=== PATIENT | female | born 1995 | race Caucasian/White ===

== ENCOUNTER 2019-05-23 09:45 | Outpatient (CLI) | payer BC, SELFPAY ==
[2019-05-23 11:00] LABS: Hemoglobin 12.2 g/dL (12.0-15.0)
[2019-05-23 11:57] LABS: HIV 1 P24 AG Negative (Negative); HIV 1/2 AB Negative (Negative)
[2019-05-23 12:05] LABS: Glucose 1 Hour PP 50gm Dose 121 mg/dL (70-130)
[2019-05-25 19:08] LABS: RPR Screen Non-Reactive (Non-Reactive)
== END 2019-05-23 09:46 | disposition home or self-care (01) ==
PROVIDERS: PCP Family Medicine
DX: Z34.02 Encounter for supervision of normal first pregnancy, second trimester (principal)
CPT/HCPCS: 36415; 82947; 85014; 85018; 86592; 86703; 86850; 86900; 86901

== ENCOUNTER 2023-01-16 03:24 | Day surgery (SDC) | payer OTHER, SELFPAY ==
[2023-01-13 11:23] VITALS: BMI 28.3
--- NOTE | 2023-01-13 11:26 | PM.IMHP ---
H&P: HPI History of Present Illness Date/Time: 01/13/23 11:26 Chief Complaint: 1st trimester missed Narrative: This is a 27-year-old 2 para 1 with a 1st trimester missed by serial ultrasound. She opts for suction dilatation curettage. Risks and benefits reviewed including but not exclusive of , aspiration burning of a bleeding, transfusion, perforation injury to bowel, bladder, ureters, or other internal organs with need for open laparotomy. She had all questions answered and asked to proceed Meds Home Medications and Allergies Home Medications Medication Instructions Recorded Confirmed Type vits no.126-ferrous fum 1 tablet PO DAILY 01/13/23 01/13/23 History 28 mg iron-folic acid 800 mcg tablet (Classic ) Allergies Allergy/AdvReac Type Severity Reaction Status Date / Time shellfish derived Allergy Nausea and Verified 01/13/23 11:22 Vomiting Exam Const: General: cooperative, healthy appearing and comfortable Nutritional Appearance: average body habitus Orientation/consciousness: oriented to person, oriented to place and oriented to time HENMT: Head: normal to inspection Resp: Effort & Inspection: normal respiratory effort Cardio: Rate: regular rate Rhythm: regular rhythm Heart sounds: S1 normal heart sound present and S2 normal heart sound present GI: Inspection: normal to inspection : Speculum Exam - Vagina: normal appearance of the vagina Speculum Exam - Cervix: normal appearance of the cervix Bimanual exam- vagina & uterus: enlarged Bimanual Exam- Adnexa, other: normal adnexae Assessment and Plan Assessment and plan (1) Missed : Code(s): O02.1 - Missed Status: Acute Plan Suction dilatation and curettage
--- NOTE | 2023-01-13 11:27 | PC.NURSE ---
Report to the Outpatient Waiting Room, entrance under the green pavilion located off [facility], at time 1145 on date 01/16/23. Planned Procedure Time: 1345. Time changes happen often and if your time is changed the preop area will call you the afternoon before. - You and your visitor will be asked to self-screen and do not enter if you have any COVID symptoms. - A mask is optional within the hospital at this time. Patients may have clear liquids (water, carbonated beverages, clear teas, apple juice) until 3 hours prior to surgery with a maximum of 20 ounces. - No food from midnight until time of surgery Take the following medications with a SIP of water the morning of surgery: NONE DO NOT STOP ANY OF YOUR OTHER PRESCRIPTION MEDICATIONS PRIOR TO SURGERY ?EXCEPT THE FOLLOWING Medications to discontinue per physician: VITAMINS Date to take last dose: NO MORE UNTIL AFTER SURGERY Please no make-up, nail bermudian, hairspray, perfume, deodorant, or body powder the day of surgery. No jewelry (including any body piercings) or valuables the day of surgery, leave them at home. Please take a shower or bath the night before, or the morning of, surgery with an antibacterial soap. Wear comfortable, loose fitting clothing. - Jewelry must be removed prior to entering the operating room. Rings and piercings that are not removed may be cut off. - The hospital will not accept responsibility for valuables. - Please leave all valuables, including medications, at home the day of surgery. If you are going home after surgery, a licensed dump truck driver off highway must drive you home. - NO public transportation without another adult if you receive anesthesia. - We recommend that an adult stay with you for 24 hours following discharge. - We also recommend that you do not drive, make important decision, drink alcoholic beverages, or take any drugs that were not prescribed by your health care provider for at least 24 hours after your discharge time. Follow any additional instructions given to you from your surgeon. If you or anyone in your household have experienced Covid symptoms in the past week, please notify your surgeon or the nurse liaison at the phone number below for possible testing. Telephone instructions given to PT Oriana KERR and asked if any additional questions and then verbalized understanding. Patient advised to call surgeon office or pre surgery nurse liaison [phone] if any additional questions.
--- NOTE | 2023-01-15 14:22 | WPDANESEPPF ---
Anes - Initial Pre Proc Eval Procedure: Operation Date: 01/16/23 13:45 Proposed Procedures p Suction Dilatation and Curettage - Grabiel Jo MD Date/Time: 01/15/23 14:22 Surgeon: Grabiel Jo MD Pre Op Diagnosis: missed AB Patient Data Age: 27 Gender: F Height: 1.6 m Weight: 72.6 kg Allergies Allergy/AdvReac Type Severity Reaction Status Date / Time shellfish derived Allergy Nausea and Verified 01/16/23 09:56 Vomiting Home Medications Medication Instructions Recorded Confirmed Type vits no.126-ferrous fum 1 tablet PO DAILY 01/13/23 01/13/23 History 28 mg iron-folic acid 800 mcg tablet (Classic ) hydrocodone 5 mg-acetaminophen 325 1 tablet PO Q4H PRN pain #14 tabs 01/16/23 Rx mg tablet Patient hx anesthesia problems: none Family hx anesthesia problems: none Results Review: All pre-operative results and documents have been reviewed as part of the pre-operative evaluation. [facility] Surgical History Surgical History (Updated 01/15/23 @ 14:22 by Venancio Rodriguez DO) History of tonsillectomy Social History Social History Smoking status: Never smoker Alcohol use details: VERY RARE WHEN NOT Substance use: current Substance use type: marijuana Other substance usage details: GUMMY Living arrangements: with family Spiritual care concerns: No Anes - Eval Final PreProcedure Day of Procedure 01/15/23 14:22 Patient weight: overweight Heart: regular rate and rhythm Lungs: clear to auscultation Airway: Mallampati scale class II Neurological: alert and oriented Last oral intake: >/= 8 hours ASA classification: II Emergent: no Anesthetic plan: proceed Anesthesia type and monitoring: general GIVS and standard monitoring Results Review: All pre-operative results and documents have been reviewed as part of the pre-operative evaluation. Informed Consent: The patient's anesthetic plan and its attendant risks and benefits were discussed with the patient/family/POA. Questions were solicited and answers provided to the satisfaction of the patient/family/POA.
--- NOTE | 2023-01-16 06:43 | WPDHPUPDATE1 ---
History and Physical Update Update Date/Time: 01/16/23 06:43 History and Physical has been reviewed, including an updated exam of the patient. There are NO changes in the patient's condition. Risks, benefits, and alternatives have been discussed and questions answered. Patient agrees to proceed with procedure.
[2023-01-16] MEDS: ACETAMINOPHEN 500 MG TABLET 1000 MG PO (10:04)
[2023-01-16 10:08] VITALS: BP 123/72; PULSE 86; RESP 16; TEMP 37.2; O2SAT 100
[2023-01-16 10:33] LABS: Hematocrit 38.6 % (37.0-47.0); Hemoglobin 13.3 g/dL (12.0-15.0)
[2023-01-16] MEDS: LACTATED RINGERS 1,000 ML 30 ML IV CONT (10:43)
[2023-01-16] MEDS: LIDOCAINE HCL 1% LOCAL INJ 20 ML VIAL 10 ML INFILTRATE (11:35)
[2023-01-16] MEDS: KETOROLAC 30 MG/ML VIAL (*BKC) IV PUSH (11:37)
--- NOTE | 2023-01-16 11:39 | W.PM.PROC2 ---
Procedure Note - Detailed Date of Procedure 01/16/23 Pre-op Diagnosis missed AB Post-op Diagnosis Same Procedure Performed Suction dilatation curettage Surgeon Grabiel Jo MD Anesthesia MAC and Local Indications 27-year-old female with first-trimester missed A/B Findings uterus sounded to 10cm tissue consistent with products of conception Description of Procedure patient was prepped draped in normal sterile fashion placed position. Excellent IV sedation speculum placed posterior. Anterior lip of the cervix grasped with single-tooth tenaculum 2.5cc 1% xylocaine anesthesia placed at 2, 410 cervix. Uterus sounded to 10cm. Serial dilatation with fragmented dilators followed passes the 10. Suction curette. When a good grating sound was heard the instruments withdrawn. Patient went to recovery in satisfactory condition. All sponge, needle, instrument counts were correct. There were no complications and she required no RhoGAM as she is Rh positive Estimated Blood Loss 25 Drains No Packing No Pathology Yes Complications No immediate complications Condition Stable Disposition PACU
[2023-01-16 11:41] VITALS: BP 122/95; PULSE 92; RESP 12; TEMP 36.5; O2SAT 99
[2023-01-16 12:10] VITALS: BP 120/80; PULSE 90
[2023-01-16 12:35] VITALS: BP 114/70; PULSE 72; RESP 20
== END 2023-01-16 12:40 | disposition home or self-care (01) ==
PROVIDERS: Visit Provider Obstetrics & Gynecology
PROC: (CPT 59820; principal; 2023-01-16 13:45)
DX: O02.1 Missed abortion (principal)
CPT/HCPCS: 59820; 36415; 85014; 85018; 85461; 86850; 86900; 86901; 88305; A9270; J1100; J1885; J2250; J2405; J2704; J3010; J7120

== ENCOUNTER 2023-11-03 12:32 | Outpatient (RCR) | payer OTHER, SELFPAY ==
[2023-11-03 13:20] VITALS: BP 110/64
== END 2024-01-13 17:51 | disposition home or self-care (01) ==
LOC: ANHOBOP 12:32
PROVIDERS: Visit Provider Obstetrics & Gynecology
DX: O36.8130 Decreased fetal movements, third trimester, not applicable or unspecified (principal); Z3A.30 30 weeks gestation of pregnancy
CPT/HCPCS: 59025

== ENCOUNTER 2024-01-04 05:54 | Inpatient (IN) | payer OTHER, SELFPAY ==
[2024-01-04] VITALS (116 sets, daily range): BP systolic 87–194; BP diastolic 25–146; PULSE 68–122; RESP 16–18; TEMP 36.4–37.3; O2SAT 90–100; BMI 32.8
--- NOTE | 2024-01-04 05:54 | LDADM ---
This patient, Mignon Crump, was admitted to Labor/Delivery/Recovery 105 on 01/04/24 at 05:54. Plans for labor, pain management and were discussed with patient. Patient/family oriented to hospital policies and general routines including ID bracelet, bed and alarms, visiting hours, pain management, procedures, bathroom and other care routines, personal items, smoking policy, room service/diet and guest tray routines, security routines, and visiting hours. Patient/Family are encouraged to report perceived risks to care and to ask questions if they do not understand what they are told or what they should do. See OBIX for further documentation.
--- NOTE | 2024-01-04 06:49 | PM.IMHP ---
H&P: HPI History of Present Illness Date/Time: 01/04/24 06:49 Chief Complaint: Mild hypertension S term Narrative: 28-year-old 3 para 1011 whose last menstrual was 03/25/2023, EDC is 01/11/2024, confirmed by 10 week ultrasound presents at 39 weeks gestation for induction of labor secondary to elevated blood pressures. She is negative for group B strep in her had been uncomplicated short of elevated pressures over the last couple visits. [facility] Surgical History Surgical History History of tonsillectomy Family History Family History Father Hypertension Grandparent Hypertension Mother Hypertension Other Arthritis Social History Social History Smoking status: Never smoker Alcohol use details: VERY RARE WHEN NOT Substance use: never Substance use type: marijuana Other substance usage details: GUMMY Living arrangements: with family Spiritual care concerns: No Meds Home Medications and Allergies Home Medications Medication Instructions Recorded Confirmed Type vits no.126-ferrous fum 1 tablet PO DAILY 01/13/23 01/13/23 History 28 mg iron-folic acid 800 mcg tablet (Classic ) hydrocodone 5 mg-acetaminophen 325 1 tablet PO Q4H PRN pain #14 tabs 01/16/23 Rx mg tablet Allergies Allergy/AdvReac Type Severity Reaction Status Date / Time shellfish derived Allergy Nausea and Verified 01/16/23 09:56 Vomiting Vital Signs Vital Signs - 24 hr 01/04/24 06:12 01/04/24 06:15 01/04/24 06:30 Pulse Rate 111 H 109 H 122 H Blood Pressure 119/81 129/86 132/93 H 01/04/24 06:46 Pulse Rate 119 H Blood Pressure 94/27 L Exam Const: General: cooperative, healthy appearing, comfortable and average body habitus Nutritional Appearance: average body habitus Orientation/consciousness: oriented to person, oriented to place and oriented to time Resp: Effort & Inspection: normal respiratory effort Cardio: Rate: regular rate Rhythm: regular rhythm Heart sounds: S1 normal heart sound present and S2 normal heart sound present GI: Inspection: normal to inspection ( Gravid soft uterus) : External Female Exam: normal external appearance Speculum Exam - Vagina: normal appearance of the vagina Speculum Exam - Cervix: normal appearance of the cervix ( cervix 3/75/1. AROM clear. FHT is reassuring) Assessment and Plan Assessment and plan (1) Term : Code(s): Z34.90 - Encounter for supervision of normal , unspecified, unspecified trimester Status: Acute (2) Gestational hypertension: Code(s): O13.9 - Gestational [-induced] hypertension without significant proteinuria, unspecified trimester Status: Acute Assessment and Plan: medical induction of labor. Spontaneous vaginal delivery is expected. She is in the epidural candidate
--- NOTE | 2024-01-04 06:52 | P.PNAN_ITS ---
Anes - Eval Pre Procedure Procedure: labor epidural Date/Time: 01/04/24 06:52 Surgeon: allyson Preop Diagnosis: pain during labor Pre Op Diagnosis: IOL Patient Data Age: 28 Gender: F Height: Weight: Last Vital Signs Pulse 119 H 01/04/24 06:46 BP 94/27 L 01/04/24 06:46 Allergies Allergy/AdvReac Type Severity Reaction Status Date / Time shellfish derived Allergy Nausea and Verified 01/16/23 09:56 Vomiting Home Medications Medication Instructions Recorded Confirmed Type vits no.126-ferrous fum 1 tablet PO DAILY 01/13/23 01/13/23 History 28 mg iron-folic acid 800 mcg tablet (Classic ) hydrocodone 5 mg-acetaminophen 325 1 tablet PO Q4H PRN pain #14 tabs 01/16/23 Rx mg tablet Laboratory Tests 01/04/24 06:25 WBC Pending RBC Pending Hgb Pending Hct Pending MCV Pending MCH Pending MCHC Pending RDW Pending Plt Count Pending MPV Pending Immature Gran % (Auto) Pending Neut % (Auto) Pending Lymph % (Auto) Pending Hanson % (Auto) Pending Eos % (Auto) Pending Baso % (Auto) Pending Lymph # (Auto) Pending Hanson # (Auto) Pending Eos # (Auto) Pending Baso # (Auto) Pending Abs Immat Gran (auto) Pending Absolute Neuts (auto) Pending Absolute Nucleated RBC Pending Nucleated RBC % Pending RPR Pending HIV 1&2 Ab/P24 Ag 4thGn Pending Patient hx anesthesia problems: none Family hx anesthesia problems: none Results Review: All pre-operative results and documents have been reviewed as part of the pre- operative evaluation. [facility] Surgical History Surgical History History of tonsillectomy Family History Family History Father Hypertension Grandparent Hypertension Mother Hypertension Other Arthritis Social History Social History Smoking status: Never smoker Alcohol use details: VERY RARE WHEN NOT Substance use: never Substance use type: marijuana Other substance usage details: GUMMY Living arrangements: with family Spiritual care concerns: No Exam Day of Procedure 01/04/24 06:52
[2024-01-04 06:58] LABS: Basophils Absolute Auto 0.1 K/mm3 (0.0-0.1); Basophils Percent Auto 0.7 % (0.2-1.2); Eosinophils Absolute Auto 0.1 K/mm3 (0-0.3); Eosinophils Percent Auto 0.7 % (0-4.4); Hematocrit 38.6 % (37.0-47.0); Hemoglobin 13.6 g/dL (12.0-15.0); Immature Granulocyte Absolute 0.34 K/mm3 (0.00-0.031); Immature Granulocyte Percent A 4.5 % (0-0.5); Lymphocytes Absolute Auto 1.51 K/mm3 (0.9-3.2); Lymphocytes Percent Auto 19.9 % (18.3-44.2); Mean Corpuscular HGB Conc 35.2 g/dl (32-36); Mean Corpuscular Hemoglobin 33.9 pg (26-34); Mean Corpuscular Volume 96.3 fl (80-100); Mean Platelet Volume 9.4 fl (7.4-10.4); Monocytes Absolute Auto 0.6 K/mm3 (0.1-0.6); Monocytes Percent Auto 7.2 % (2.6-8.5); Neutrophils Absolute Auto 5.1 K/mm3 (1.3-6.7); Platelet Count Result 175 k/mm3 (150-375); Red Blood Count 4.01 M/mm3 (4.2-5.4); Red Cell Distribution Width 13.1 % (11.5-14.5); White Blood Count 7.6 K/mm3 (4.5-10.0)
[2024-01-04] MEDS: LACTATED RINGERS 1,000 ML 125 ML IV CONT ×2 (07:00→11:35)
[2024-01-04] MEDS: OXYTOCIN 30 UNITS/NS 500 ML 30 UNITS/500 ML BAG IV CONT (07:01)
[2024-01-04 08:18] LABS: HIV 1/2 Ab P24 Ag Result Negative (Negative)
[2024-01-04 10:06] LABS: Rapid Plasma Reagin Non-Reactive (NonReactive)
[2024-01-04] MEDS: fentaNYL CITRATE INJ (*CRX) 100 MCG/2 ML VIAL 50 MCG IV PUSH (10:59)
--- NOTE | 2024-01-04 11:11 | PM.OBPNLAB ---
Pain Control Date/time seen: 01/04/24 11:11 Pain control: tolerating well Pelvic Exam Dilation (cm): 4 Effacement (%): 90 station: -2 Amniotic membrane status: Leaking Contractions Monitor mode: External
--- NOTE | 2024-01-04 14:01 | PM.OBPRVD ---
OB - Vaginal Delivery Note Procedure Delivery date: 01/04/24 Events: Gestational Hypertension Induction method: AROM Delivery augmentation: Pitocin Delivery monitor: External FHT and External Uterine Route of delivery: Episiotomy description: None Laceration Description: None Quantitative Blood Loss (ml): 61 Anesthesia type: Epidural Disposition: Floor Complications: No immediate complications Narrative: Patient was admitted for induction of labor early a.m.. Artificial rupture membranes performed she rested for unremarkable 1st stage of labor to completely dilate she pushed delivered head spontaneously in the TILA position. Anterior posterior shoulder delivered spontaneously. Cord clamped and cut passed of the table given Apgars of 8 [id number] 9 [id number]. Cord blood was drawn. Placenta delivered intact spontaneously. Twenty of Pitocin placed IV to help firm the uterus after inspecting the lateral sidewalls. No injury was seen blood loss was estimated at61cc. Mom and baby doing fine at the time of dictation Baby Date of : 01/04/24 Time of : 13:55 Gestational Age by Date: 39 gender: Female presentation: vertex position: Right Occiput Anterior Placenta delivery description: Spontaneous Cord Vessel Description: 3 Vessels score one minute: 8 score five minutes: 9
--- NOTE | 2024-01-04 14:03 | P.DS_ITS ---
DS: Admitting Diagnosis Discharge Date 01/05/2024 Admitting Diagnosis term /gestational hypertension DS: Discharge Diagnosis Discharge Diagnosis (1) Gestational hypertension: Code(s): O13.9 - Gestational [-induced] hypertension without significant proteinuria, unspecified trimester Status: Acute (2) Term : Code(s): Z34.90 - Encounter for supervision of normal , unspecified, unspecified trimester Status: Acute DS: Summary Hospital Course Reason for hospitalization: patient was admitted for induction labor early a.m. 01/04/2024 underwent spontaneous vaginal delivery about 1:55 p.m. Hospital Course: patient's hospital course unremarkable. She remained afebrile. She was voiding without difficulty, ambulating, eating regular, and generally without complaints. Time Spent with Patient Time attestation: Total time spent providing and/or coordinating discharge services: Exam Const: General: cooperative, healthy appearing and comfortable Nutritional Appearance: average body habitus Orientation/consciousness: oriented to person, oriented to place and oriented to time Resp: Effort & Inspection: normal respiratory effort Cardio: Rate: regular rate Rhythm: regular rhythm Heart sounds: S1 normal heart sound present and S2 normal heart sound present GI: Inspection: normal to inspection ( Fundus firm below umbilicus) DS: Data Data Completed and Pending Labs on day of discharge: Labs from last 24 hours 01/04/24 06:25 WBC 7.6 RBC 4.01 L Hgb 13.6 Hct 38.6 MCV 96.3 MCH 33.9 MCHC 35.2 RDW 13.1 Plt Count 175 MPV 9.4 Immature Gran % (Auto) 4.5 H Neut % (Auto) 67.0 Lymph % (Auto) 19.9 Hodgeman % (Auto) 7.2 Eos % (Auto) 0.7 Baso % (Auto) 0.7 Lymph # (Auto) 1.51 Hodgeman # (Auto) 0.6 Eos # (Auto) 0.1 Baso # (Auto) 0.1 Abs Immat Gran (auto) 0.34 H Absolute Neuts (auto) 5.1 Absolute Nucleated RBC 0.000 Nucleated RBC % 0.0 RPR Non-reactive HIV 1&2 Ab/P24 Ag 4thGn Negative Blood Type O Positive Antibody Screen Negative Discharge Plan Discharge Attending physician on discharge: Grabiel Rushing Discharging Clinician: Dalla [place],Grabiel J. Patient Disposition: Home, Self-Care Activity: may shower, no straining and pelvic rest Diet: heart healthy Wound Care Instructions: follow printed instructions Patient Instructions: Antibiotic Form Stand Alone Forms: General Discharge Information Follow-up/Referrals: Grabiel Rushing MD [Physician] - Discharge Medications: Continued Classic 28 mg iron- 800 mcg Tablet 1 tablet PO DAILY hydrocodone-acetaminophen 5-325 mg tablet 1 tablet PO Q4H PRN (Reason: pain) Qty: 14 0RF Date of admission: 01/04/24 05:54 Primary Care Provider: PHYSICIAN NOT ON STAFF,NONSTAFF Admitting Provider: Grabiel Rushing Attending physician on admission: Grabiel Rushing Condition: Stable
[2024-01-04] MEDS: OXYTOCIN 30 UNITS/NS 500 ML 30 UNITS/500 ML BAG 125 UNITS IV CONT (14:28)
[2024-01-04] MEDS: IBUPROFEN 600 MG TABLET PO (16:41)
--- NOTE | 2024-01-04 17:28 | OBPPTRN ---
Patient transferred to post room #286 via wheelchair. Support person present. Oriented to unit, room, information board, rooming in, admission packet and security measures. Patient verbalizes understanding.
[2024-01-04] MEDS: ACETAMINOPHEN 325 MG TABLET 650 MG PO (18:40)
[2024-01-05 00:24] VITALS: BP 142/75; PULSE 77; RESP 18; TEMP 36.4; O2SAT 100
[2024-01-05 03:43] VITALS: BP 114/80; PULSE 73; RESP 18; TEMP 36.8; O2SAT 98
[2024-01-05] MEDS: ACETAMINOPHEN 325 MG TABLET 650 MG PO ×2 (03:46→14:50)
[2024-01-05] MEDS: IBUPROFEN 600 MG TABLET PO ×2 (03:47→14:51)
[2024-01-05 04:29] LABS: Hematocrit 36.5 % (37.0-47.0); Hemoglobin 12.7 g/dL (12.0-15.0)
--- NOTE | 2024-01-05 07:27 | PM.OBPNVD ---
OB - PN: Subj Subjective Date/time seen: 01/05/24 07:27 Patient comments: no complaints and pain well controlled baby status: doing well and nursing well OB - PN: Obj Data Labs 01/05/24 03:22 Labs: Laboratory Results - last 24 hr 01/04/24 01/05/24 06:25 03:22 Hgb 12.7 Hct 36.5 L RPR Non-reactive HIV 1&2 Ab/P24 Ag 4thGn Negative Blood Type O Positive Antibody Screen Negative OB - PN A/P Plan day: 1 Plan: routine care, discharge home and follow up 6 weeks Time Spent With Patient Time: Total time spent is greater than 50% in coordination of care (as documented) at patient's floor/unit and/or counseling patient: Time with patient: less than 15 minutes Exam Const: General: cooperative, healthy appearing and comfortable Nutritional Appearance: average body habitus Orientation/consciousness: oriented to person, oriented to place and oriented to time Resp: Effort & Inspection: normal respiratory effort Cardio: Rate: regular rate Rhythm: regular rhythm Heart sounds: S1 normal heart sound present and S2 normal heart sound present GI: Inspection: normal to inspection
[2024-01-05] MEDS: DOCUSATE SODIUM 100 MG CAPSULE PO (07:49)
[2024-01-05] MEDS: MULTIVIT/MIN/PREN/FOL AC/IRON TABLET 1 TAB PO (07:49)
[2024-01-05 07:55] VITALS: BP 120/87; PULSE 90; RESP 16; TEMP 36.9; O2SAT 100
--- NOTE | 2024-01-05 09:25 | WPDANLDPN2 ---
Anes-Prog Note L&D Date/Time: 01/05/24 09:25 Comfortable throughout: labor and delivery Neuraxial method: epidural Epidural/Spinal procedure site: clean & non-tender Neuro status: Neuro function grossly intact. Cardiovascular status: normal Respiratory status: normal Airway patency: baseline Mental status: baseline Post-Op hydration status: normal Vital Signs: Last Vital Signs Temp 36.9 C 01/05/24 07:55 Pulse 90 01/05/24 07:55 Resp 16 01/05/24 07:55 BP 120/87 01/05/24 07:55 Pulse Ox 100 01/05/24 07:55 O2 Del Method Room Air 01/05/24 08:00 Pain score (VAS): 02/25 I/O: Intake & Output 01/04/24 01/05/24 01/05/24 23:59 07:59 15:59 Output Total 150 Balance -150 Post-procedural complaints: none Patient feedback: Patient satisfied with anesthetic care.
--- NOTE | 2024-01-05 11:45 | PC.NURSE ---
Introductions were made, then consulted with patient to assess needs related to . Discussed with mother her?plans to feed?her and the?experience so far. Resources provided for inpatient and outpatient services with the feeding sheet, mom/baby guide and name written on the communication board. Mother voiced understanding of information and will call if there is a request for assistance. Reported to the Primary RN.
[2024-01-05 12:32] VITALS: BP 119/85; PULSE 68; RESP 16; TEMP 37; O2SAT 97
--- NOTE | 2024-01-06 10:40 | PC.NURSE ---
Follow up RN requested assistance. Baby has an elevated bilirubin. She is already having yellow seedy stools and has had 3 wet diapers this morning. Observed mother latching to the [left & right] breast in [cross cradle] position. [was] able to maintain an appropriate latch. Mother [declines] discomfort [throughout feeding]. Encouraged mother to keep awake and nursing at the breast for 15 minutes. Mother taught to listen for swallowing during feedings. Mom says that she tends to lean forward when baby latches and is going to try to use her pillow to help support baby and bring her closer to the breast. Encouraged checking the bottom lip for rolling and observing the cheek for dimpling. Mother voiced understanding of the education shared, to call for assistance if the infant does not latch or if there is discomfort with . Reported to the Primary RN.?
[2024-01-06 10:43] VITALS: BP 132/87; PULSE 78; RESP 18; TEMP 37.1; O2SAT 100
== END 2024-01-05 15:37 | disposition home or self-care (01) | DRG 807 ==
LOC: ANHLDR 14:04 → ANHOB2 17:35
PROVIDERS: Admitting Provider Obstetrics & Gynecology; Visit Provider Obstetrics & Gynecology
DX: O13.4 Gestational [pregnancy-induced] hypertension without significant proteinuria, complicating childbirth (principal); Z37.0 Single live birth; Z3A.39 39 weeks gestation of pregnancy
CPT/HCPCS: 36415; 85014; 85018; 85025; 86592; 86703; 86850; 86900; 86901; A9270; G0432; J2590; J2795; J3010; J7120